=== PATIENT | female | born 1995 | race Caucasian/White ===

== ENCOUNTER 2017-04-18 08:43 | Inpatient (IN) | payer SELFPAY ==
[~2017-04-18] VITALS: Ht 167.6 cm; Wt 79.4 kg
[2017-04-18] VITALS (9 sets, daily range): BP systolic 105–123; BP diastolic 62–78; PULSE 53–110; RESP 16–20; TEMP 98.2–100.2; O2SAT 97–100
[~2017-04-18 08:43] MED LIST: METH40TA9 PO
[2017-04-18] MEDS ORDERED: SODIUM CHLOR 0.9% 1000 ML INJ 1,000 ML IV ONE ×2 (09:02→17:45)
[2017-04-18] MEDS ORDERED: SODIUM CHLORIDE 0.9% FLUSH 10 ML FLUSH IVF PRN (09:15)
[2017-04-18 10:44] LABS: BASOPHIL % 0.6 % (0.0-2.0); EOSINOPHIL # 0.1 TH/MM3 (0-0.4); EOSINOPHIL % 2.2 % (0.0-4.0); HEMATOCRIT 38.3 % (35.0-46.0); HEMO FLAGS DIFF FINAL; LYMPH % 22.9 % (9.0-44.0); LYMPHOCYTE # 1.3 TH/MM3 (1.0-4.8); MEAN CELL VOLUME 87.2 FL (80.0-100.0); MEAN CORPUSCULAR HEMOGLOBIN 28.4 PG (27.0-34.0); MEAN CORPUSCULAR HGB CONC 32.6 % (32.0-36.0); MONO % 4.1 % (0.0-8.0); NEUT % 70.2 % (16.0-70.0); PLATELET COUNT 174 TH/MM3 (150-450); RED BLOOD COUNT 4.39 MIL/MM3 (4.00-5.30); RED CELL DISTRIBUTION WIDTH 12.9 % (11.6-17.2); WHITE BLOOD COUNT 5.7 TH/MM3 (4.0-11.0)
[2017-04-18 10:57] LABS: ALT (GPT) 47 U/L (10-53); ANION GAP 6 MEQ/L (5-15); AST (GOT) 26 U/L (15-37); BICARBONATE 23.7 MEQ/L (21.0-32.0); BLOOD UREA NITROGEN 9 MG/DL (7-18); CHLORIDE 113 MEQ/L (98-107); GLOMERULAR FILTRATION RATE 116 ML/MIN (>89); POTASSIUM 3.8 MEQ/L (3.5-5.1); SODIUM (NA) 143 MEQ/L (136-145)
[2017-04-18 11:01] LABS: ALKALINE PHOSPHATASE 66 U/L (45-117); BETA HCG QUANT LESS THAN 1 MIU/ML (0-5); TOTAL BILIRUBIN ADULT 0.3 MG/DL (0.2-1.0)
--- NOTE | 2017-04-18 12:06 | PD ---
HPI Chief Complaint: Seizure Time Seen by Provider: 09:02 Travel History International Travel<30 days: No Contact w/Intl Traveler<30days: No Traveled to known affect area: No History of Present Illness HPI Is a 21 year-old woman who presents to the emergency department from [facility] with the seizure. She presented there yesterday voluntarily for treatment for IV drug abuse. She uses IV heroin. Last used 2 nights ago. She had a seizure with generalized convulsions lasting about 15 seconds. She was sent to the emergent for evaluation. She complains of a painful bump on the back of her head. No other complaints. History Past Medical History Narrative Medical IV drug use Hepatitis C : 0 Past Surgical History Surgical History: No Previous Surgery Social History Alcohol Use: No Tobacco Use: Yes (1 CIGARETTE) Allergies-Medications (Allergen,Severity, Reaction): Coded Allergies: No Known Allergies (Verified , 04/18/17) Reported Meds & Prescriptions Reported Meds & Active Scripts Active Reported Methadone Hcl (Methadone HCl) 40 Mg Tab 140 Mg PO DAILY Review of Systems Except as stated in HPI: all other systems reviewed are Neg Physical Exam Narrative GENERAL: Well-appearing 21 year-old woman, no acute distress. SKIN: Focused skin assessment warm/dry. HEAD: Atraumatic. Normocephalic. CARDIOVASCULAR: Regular rate and rhythm. No murmur appreciated. RESPIRATORY: No accessory muscle use. Clear to auscultation. Breath sounds equal bilaterally. GASTROINTESTINAL: Abdomen soft, non-tender, nondistended. Hepatic and splenic margins not palpable. MUSCULOSKELETAL: No obvious deformities. No edema. NEUROLOGICAL: Awake and alert. No obvious cranial nerve deficits. Motor grossly within normal limits. Normal speech. PSYCHIATRIC: Appropriate mood and affect; insight and judgment normal. Data Data Last Documented VS Vital Signs Date Time Temp Pulse Resp B/P Pulse Ox O2 Delivery O2 Flow Rate FiO2 04/18/17 10:28 53 20 118/78 100 Room Air 04/18/17 08:49 98.5 Orders Complete Blood Count With Diff (04/18/17 09:02) Electrocardiogram (04/18/17 ) Ct Brain W/O Iv Contrast(Rout) (04/18/17 ) Blood Glucose (04/18/17 09:02) Ecg Monitoring (04/18/17 09:02) Iv Access Insert/Monitor (04/18/17 09:02) Oximetry (04/18/17 09:02) Comprehensive Metabolic Panel (04/18/17 09:02) Sodium Chlor 0.9% 1000 Ml Inj (Ns 1000 M (04/18/17 09:02) Sodium Chloride 0.9% Flush (Ns Flush) (04/18/17 09:15) Beta Hcg (Quant/Titer) (04/18/17 09:02) Labs Laboratory Tests Test 04/18/17 10:20 White Blood Count 5.7 TH/MM3 Red Blood Count 4.39 MIL/MM3 Hemoglobin 12.5 GM/DL Hematocrit 38.3 % Mean Corpuscular Volume 87.2 FL Mean Corpuscular Hemoglobin 28.4 PG Mean Corpuscular Hemoglobin 32.6 % Concent Red Cell Distribution Width 12.9 % Platelet Count 174 TH/MM3 Mean Platelet Volume 8.9 FL Neutrophils (%) (Auto) 70.2 % Lymphocytes (%) (Auto) 22.9 % Monocytes (%) (Auto) 4.1 % Eosinophils (%) (Auto) 2.2 % Basophils (%) (Auto) 0.6 % Neutrophils # (Auto) 4.0 TH/MM3 Lymphocytes # (Auto) 1.3 TH/MM3 Monocytes # (Auto) 0.2 TH/MM3 Eosinophils # (Auto) 0.1 TH/MM3 Basophils # (Auto) 0.0 TH/MM3 CBC Comment DIFF FINAL Differential Comment Sodium Level 143 MEQ/L Potassium Level 3.8 MEQ/L Chloride Level 113 MEQ/L Carbon Dioxide Level 23.7 MEQ/L Anion Gap 6 MEQ/L Blood Urea Nitrogen 9 MG/DL Creatinine 0.64 MG/DL Estimat Glomerular Filtration 116 ML/MIN Rate Random Glucose 98 MG/DL Calcium Level 8.8 MG/DL Total Bilirubin 0.3 MG/DL Aspartate Amino Transf 26 U/L (AST/SGOT) Alanine Aminotransferase 47 U/L (ALT/SGPT) Alkaline Phosphatase 66 U/L Total Protein 7.2 GM/DL Albumin 3.4 GM/DL Human Chorionic Gonadotropin, LESS THAN 1 Quant MIU/ML [facility] Medical Decision Making Medical Screen Exam Complete: Yes Emergency Medical Condition: Yes Interpretation(s) My review of EKG: Normal sinus rhythm at a rate of 60, normal axis, normal intervals, no ischemia. LABS: CBC is unremarkable. CMP unremarkable. HCG negative. Head CT negative. Differential Diagnosis Seizure, withdrawal, drug use, adverse effect to medication, other Narrative Course Medical decision making 21 year-old woman, no history of seizures, presents with 15 segs on generalized convulsions. She's been treated at [facility] for IV drug abuse. Last used heroin when 2 nights ago. She is receiving Klonopin clonidine. She looks well. She is small contusion on the back of her head. No other recent trauma. We'll check labs EKG CT and likely outpatient follow-up. Diagnosis Primary Impression: Seizure Additional Instructions: Continue treatment for substance abuse with [facility]. Do not drive or operate heavy machinery until cleared by your physician. You should avoid being in any situation where if you had a seizure it could be dangerous such as swimming, looking on a ladder, or other such activities. Return to the emergency department for any seizures lasting more than 5 minutes , [id number] seizures, or seizures with prolonged confusion afterwards. Med/Other Pt SpecificInfo: No Change to Meds Disposition: 01 DISCHARGE HOME Condition: Stable Swapnil Warner MD Apr 18, 2017 12:05
--- NOTE | 2017-04-18 13:27 | RADRPT ---
EXAM DATE/TIME: 04/18/2017 11:24 [place] COMPARISON: No previous studies available for comparison. INDICATIONS : Seizure RADIATION DOSE: 32.68 CTDIvol (mGy) MEDICAL HISTORY : Hepatitis C. SURGICAL HISTORY : None. ENCOUNTER: Initial ACUITY: 1 day PAIN SCALE: Non-responsive LOCATION: cranial TECHNIQUE: Multiple contiguous axial images were obtained of the head. Using automated exposure control and adj ustment of the mA and/or kV according to patient size, radiation dose was kept as low as reasonably a chievable to obtain optimal diagnostic quality images. DICOM format image data is available electro nically for review and comparison. FINDINGS: CEREBRUM: The ventricles are normal for age. No evidence of midline shift, mass lesion, hemorrhage or acute in farction. No extra-axial fluid collections are seen. POSTERIOR FOSSA: The cerebellum and brainstem are intact. The 4th ventricle is midline. The cerebellopontine angle i s unremarkable. EXTRACRANIAL: The visualized portion of the orbits is intact. SKULL: The calvaria is intact. No evidence of skull fracture. CONCLUSION: No acute disease. Rachid Gonzalez MD on April 18, 2017 at 13:25 Board Certified Radiologist. This report was verified electronically.
--- NOTE | 2017-04-18 13:36 | EKG ---
Date Performed: 04/18/2017 Time Performed: 10:39:42 PTAGE: 21 years EKG: Sinus rhythm WITH SINUS ARRHYTHMIA NORMAL ECG WARNING: DATA QUALITY MAY AFFECT INTERPRETATION Lead V4 is not avai lable NO PREVIOUS TRACING DOCTOR: Demetrius Gibson Interpretating Date/Time 04/18/2017 13:35:13
[2017-04-18] MEDS ORDERED: KETOROLAC TROMETHAMINE 30 MG/ML (IVP) VIAL IVP ONE (13:45)
[2017-04-18] MEDS ORDERED: ACETAMINOPHEN 500 MG CPLT PO ONE (14:00)
[2017-04-18] MEDS ORDERED: LORazepam 2 MG/ML VIAL IV PRN (14:15)
[2017-04-18] MEDS ORDERED: ONDANSETRON HCL 4 MG/2 ML VIAL IV PRN (14:15)
[2017-04-18] MEDS ORDERED: LORazepam 2 MG/ML VIAL IV PUSH PRN ×3 (14:15)
[2017-04-18] MEDS ORDERED: MAGNESIUM HYDROXIDE SUSP 30 ML CUP PO PRN (14:15)
[2017-04-18] MEDS ORDERED: ACETAMINOPHEN 325 MG TAB PO PRN (14:15)
[2017-04-18] MEDS ORDERED: SODIUM CHLORIDE 0.9% FLUSH 10 ML FLUSH IV FLUSH PRN ×2 (14:15)
[2017-04-18] MEDS ORDERED: BISACODYL 10 MG SUPP RECTAL PRN (14:15)
[2017-04-18] MEDS ORDERED: LORazepam 2 MG TAB PO PRN (14:15)
[2017-04-18] MEDS ORDERED: HALOPERIDOL LACTATE 5 MG/ML AMP IM PRN (14:15)
[2017-04-18] MEDS ORDERED: FLUMAZENIL 0.5 MG/5 ML VIAL IV PUSH PRN (14:15)
[2017-04-18] MEDS ORDERED: PROCHLORPERAZINE 25 MG SUPP RECTAL PRN (14:15)
[2017-04-18] MEDS ORDERED: LORazepam 1 MG TAB PO PRN (14:15)
[2017-04-18] MEDS ORDERED: ONDANSETRON HCL 4 MG/2 ML VIAL IVP PRN (14:15)
[2017-04-18] MEDS ORDERED: NALOXONE HCL 0.4 MG/ML AMP IV PRN (14:15)
[2017-04-18] MEDS ORDERED: SENNOSIDES 8.6 MG TAB PO PRN (14:15)
[2017-04-18] MEDS ORDERED: LACTULOSE SYRUP 20 GM/30 ML CUP PO PRN (14:15)
[2017-04-18] MEDS ORDERED: cloNIDine HCL 0.1 MG TAB PO PRN (14:30)
[2017-04-18] MEDS ORDERED: FOLIC ACID 1 MG TAB PO ONE (14:30)
[2017-04-18] MEDS ORDERED: THIAMINE HCL 100 MG TAB PO ONE (14:30)
[2017-04-18] MEDS ORDERED: MULTIVITAMIN TAB PO ONE (14:30)
--- NOTE | 2017-04-18 14:58 | HHI.HP ---
[facility] Service [facility] Primary Care Physician No Primary Care Physician Admission Diagnosis seizures Diagnoses: (1) Seizure Diagnosis: Principal (2) Drug abuse Diagnosis: Principal (3) Tobacco abuse Diagnosis: Secondary (4) Heroin abuse Diagnosis: Principal Chief Complaint: Seizure activity Travel History International Travel<30 Days: No Contact w/Intl Traveler <30 Da: No Traveled to Known Affected Are: No History of Present Illness Ms. Peña is a 21-year-old female patient with a known medical history of IV heroin abuse who presented to the ED with witnessed seizure activity. Last IV heroin use 2 days ago. Patient had presented voluntarily to [facility] yesterday when, per records, this morning she had her first witnessed seizure and was sent to ED emergently. This episode involved convulsions lasting roughly 15 seconds. Patient unable to recall anything related to the event. Also while patient was ambulating in the ED today she had a syncopal episode, during which she blacked out for less than 10 seconds and woke back up shortly after, both alert and oriented. Denies any previous seizure activity. Denies any alcohol use. Denies any recent illness. Denies any recent fever, chills, cough, headache, dizziness, shortness of breath, abdominal pain, nausea, vomiting, diarrhea or dysuria. Review of Systems Constitutional: COMPLAINS OF: Fatigue, Chills, DENIES: Diaphoretic episodes, Fever, Weight gain, Weight loss Endocrine: DENIES: Abnorml menstrual pattern Eyes: DENIES: Blurred vision, Diplopia, Eye inflammation Ears, nose, mouth, throat: DENIES: Tinnitus, Hearing loss, Vertigo, Nasal discharge Respiratory: DENIES: Apneas, Cough, Snoring, Wheezing Cardiovascular: COMPLAINS OF: Syncope, DENIES: Chest pain, Palpitations, Dyspnea on Exertion, PND, Lower Extremity Edema Gastrointestinal: DENIES: Abdominal pain, Black stools, Bloody stools Genitourinary: DENIES: Abnormal vaginal bleeding, Dysmenorrhea, Dyspareunia, Sexual dysfunction Musculoskeletal: DENIES: Joint pain, Muscle aches, Stiffness Integumentary: DENIES: Abnormal pigmentation, Pruritus Hematologic/lymphatic: DENIES: Bruising, Lymphadenopathy Immunologic/allergic: DENIES: Eczema, Urticaria Neurologic: COMPLAINS OF: Headache, Seizures, DENIES: Abnormal gait, Localized weakness, Paresthesias Psychiatric: COMPLAINS OF: Anxiety, Depression, Agitation, DENIES: Confusion, Mood changes, Hallucinations, Suicidal Ideation, Homicidal Ideation, Delusions Except as stated in HPI: all other systems reviewed are Neg Past Family Social History Past Medical History History of Hepatitis C, has not received treatment. IVDU Tobacco abuse Past Surgical History Denies any surgical history. Reported Medications Denies any current medications. Allergies: Coded Allergies: No Known Allergies (Verified , 04/18/17) Active Ordered Medications Current Medications Medications (Trade) Dose Ordered Sig/David Route Start Time Stop Time Status Last Admin Sodium Chloride 2 ml 2 ml UNSCH PRN IVF 04/18/17 09:15 (NS 1000 ml Inj) 1,000 ml @ 75 mls/hr [id number] IV 04/18/17 14:15 UNV (NS Flush) 2 ml UNSCH PRN IV FLUSH 04/18/17 14:15 UNV (NS Flush) 2 ml BID IV FLUSH 04/18/17 21:00 UNV (Ativan Inj) 2 mg UNSCH PRN IV 04/18/17 14:15 UNV (Zofran Inj) 4 mg Q6H PRN IV 04/18/17 14:15 UNV (NS Flush) 2 ml UNSCH PRN IV FLUSH 04/18/17 14:15 UNV (NS Flush) 2 ml BID IV FLUSH 04/18/17 21:00 UNV (Tylenol) 650 mg Q4H PRN PO 04/18/17 14:15 UNV (Zofran Inj) 4 mg Q6H PRN IVP 04/18/17 14:15 UNV (Compazine Supp) 25 mg Q12H PRN [place] 04/18/17 14:15 UNV (Narcan Inj) 0.4 mg UNSCH PRN IV 04/18/17 14:15 UNV (Darlene-Colace) 1 tab BID PO 04/18/17 21:00 UNV (Milk Of Magnesia Liq) 30 ml Q12H PRN PO 04/18/17 14:15 UNV (Senokot) 17.2 mg Q12H PRN PO 04/18/17 14:15 UNV (Dulcolax Supp) 10 mg DAILY PRN RECTAL 04/18/17 14:15 UNV (Lactulose Liq) 30 ml DAILY PRN PO 04/18/17 14:15 UNV (Romazicon Inj) 0.2 mg Q1M PRN IV PUSH 04/18/17 14:15 UNV (Ativan) 1 mg Q4H PRN PO 04/18/17 14:15 UNV (Ativan Inj) 1 mg Q4H PRN IV PUSH 04/18/17 14:15 UNV (Ativan) 2 mg Q2H PRN PO 04/18/17 14:15 UNV (Ativan Inj) 2 mg Q2H PRN IV PUSH 04/18/17 14:15 UNV (Ativan Inj) 2 mg Q1H PRN IV PUSH 04/18/17 14:15 UNV (Ativan Inj) 2 mg Q15M PRN IV PUSH 04/18/17 14:15 UNV (Haldol Inj) 2 mg Q15M PRN IM 04/18/17 14:15 UNV Non-Formulary Medication 140 mg DAILY PO 04/19/17 09:00 UNV (Theragran) 1 tab ONCE ONCE PO 04/18/17 14:30 04/18/17 14:31 UNV (Theragran) 1 tab DAILY PO 04/19/17 09:00 UNV (Vitamin B1) 100 mg ONCE ONCE PO 04/18/17 14:30 04/18/17 14:31 UNV (Vitamin B1) 100 mg DAILY PO 04/19/17 09:00 UNV (Folate) 1 mg ONCE ONCE PO 04/18/17 14:30 04/18/17 14:31 UNV (Folate) 1 mg DAILY PO 04/19/17 09:00 UNV (Catapres) 0.1 mg Q4H PRN PO 04/18/17 14:30 UNV Family History Denies any significant family medical history. Social History Patient lives with her boyfriend, states she is arranging to live at a support house for her IV drug abuse. Denies any alcohol use. Does admit to IV heroin abuse, last used 2 days ago. Does admit to smoking cigarettes 1/2 ppd. Physical Exam Vital Signs Vital Signs Date Time Temp Pulse Resp B/P Pulse Ox O2 Delivery O2 Flow Rate FiO2 04/18/17 13:45 98.2 76 16 118/62 100 Room Air 04/18/17 10:28 53 20 118/78 100 Room Air 04/18/17 10:27 20 100 Room Air 04/18/17 08:57 99 Room Air 04/18/17 08:49 98.5 59 20 114/76 99 Physical Exam GENERAL: Well-nourished, well-developed female patient, in no apparent distress. SKIN: No rashes, ecchymoses or lesions. Warm and dry. HEENT: Atraumatic. Normocephalic. No temporal or scalp tenderness. Pupils equal round and reactive. Extraocular motions intact. No scleral icterus. No injection or drainage. Nose without bleeding, purulent drainage or septal hematoma. Throat without erythema, tonsillar hypertrophy or exudate. Uvula midline. Airway patent. Tongue is midline NECK: Trachea midline. No JVD or lymphadenopathy. Supple, nontender, no meningeal signs. CARDIOVASCULAR: Regular rate and rhythm. No murmur appreciated. S1-S2 no S3 or S4 no heave or thrill or rub or gallop RESPIRATORY: Clear to auscultation. Breath sounds equal bilaterally. No wheezes , rales, or rhonchi. GASTROINTESTINAL: Abdomen soft, non-tender, nondistended. No guarding. MUSCULOSKELETAL: Extremities without clubbing, cyanosis, or edema. No joint tenderness, effusion, or edema noted. Some track villatoro noted NEUROLOGICAL: Awake and alert. Cranial nerves II through XII intact. Motor and sensory grossly within normal limits. Five out of 5 muscle strength in all muscle groups. Normal speech. Insight and judgment are poor mood and behavior somewhat appropriate Laboratory Laboratory Tests Test 04/18/17 10:20 White Blood Count 5.7 Red Blood Count 4.39 Hemoglobin 12.5 Hematocrit 38.3 Mean Corpuscular Volume 87.2 Mean Corpuscular Hemoglobin 28.4 Mean Corpuscular Hemoglobin 32.6 Concent Red Cell Distribution Width 12.9 Platelet Count 174 Mean Platelet Volume 8.9 Neutrophils (%) (Auto) 70.2 Lymphocytes (%) (Auto) 22.9 Monocytes (%) (Auto) 4.1 Eosinophils (%) (Auto) 2.2 Basophils (%) (Auto) 0.6 Neutrophils # (Auto) 4.0 Lymphocytes # (Auto) 1.3 Monocytes # (Auto) 0.2 Eosinophils # (Auto) 0.1 Basophils # (Auto) 0.0 CBC Comment DIFF FINAL Differential Comment Sodium Level 143 Potassium Level 3.8 Chloride Level 113 Carbon Dioxide Level 23.7 Anion Gap 6 Blood Urea Nitrogen 9 Creatinine 0.64 Estimat Glomerular Filtration 116 Rate Random Glucose 98 Calcium Level 8.8 Total Bilirubin 0.3 Aspartate Amino Transf 26 (AST/SGOT) Alanine Aminotransferase 47 (ALT/SGPT) Alkaline Phosphatase 66 Total Protein 7.2 Albumin 3.4 Human Chorionic Gonadotropin, LESS THAN 1 Quant Result Diagram: 04/18/17 1020 04/18/17 1020 Imaging Last Impressions Head CT 04/18/17 0000 Signed Impressions: Service Date/Time: Tuesday, April 18, 2017 11:24 - CONCLUSION: No acute disease. Rachid Gonzalez MD Assessment and Plan Problem List: (1) Drug abuse ICD Code: F19.10 Status: Acute (2) Seizure ICD Code: R56.9 Status: Acute (3) Tobacco abuse ICD Code: Z72.0 Status: Acute (4) Heroin abuse ICD Code: F11.10 Status: Acute Assessment and Plan Ms. Peña is a 21-year-old female patient with a known medical history of IVDU. Last IV heroin use 2 days ago. Denies any previous seizure activity. Denies any alcohol use. Has sought treatment for IVDU at [facility]. Had first witnessed seizure while there this morning and sent to ED emergently. Also while patient was ambulating in the ED today she had a syncopal episode when SHe blacked out for less than 10 seconds and woke back up shortly after alert and oriented. Denies any prior seizure activity. Denies any recent illness. Denies any recent fever, chills, cough, headache, dizziness, shortness of breath, abdominal pain, nausea, vomiting, diarrhea or dysuria. New onset seizure activity suspect secondary to drug withdrawal Syncopal episode suspect secondary to above - CT brain showing no acute disease. - Consult neurology for new onset seizures, appreciate input. - EEG ordered and pending. Follow. - Seizure precautions. Haldol and Ativan PRN. - Continue neuro checks q4hr. - Monitor hydration, continue IVF. IV drug abuse - Last used IV heroin 2 days ago. - . Monitor for withdrawals. - Start on multivitamin, thiamine and folic acid. - Encourage cessation. [facility] protocol for withdrawal Tobacco abuse: Encouraged cessation. DVT prophylaxis:SCDs/TEDs.The exam, history, and the medical decision-making described in the above note were completed with the assistance of the mid-level provider. I reviewed and agree with the findings presented. I attest that I had a [id number] encounter with the patient on the same day, and personally performed and documented my assessment and findings in the medical record. Physician Certification 2 Midnight Certification Type: Admission for Inpatient Services Order for Inpatient Services The services are ordered in accordance with Medicare regulations or non- Medicare payer requirements, as applicable. In the case of services not specified as inpatient-only, they are appropriately provided as inpatient services in accordance with the 2-midnight benchmark. Estimated LOS (days): 3 3 days is the estimated time the patient will need to remain in the hospital, assuming treatment plan goals are met and no additional complications. Post-Hospital Plan: Home Gia Barrera Apr 18, 2017 14:58 Jaspal Zambrano DO Apr 18, 2017 15:19
[2017-04-18] MEDS ORDERED: NICOTINE 14 MG/24 HR PATCH T-DERMAL ONE (15:45)
[2017-04-18] MEDS: SODIUM CHLOR 0.9% 1000 ML INJ 1,000 ML IV SCH (15:58)
[2017-04-18] MEDS: LORazepam 2 MG/ML VIAL IV PUSH PRN ×2 (16:09→22:50)
--- NOTE | 2017-04-18 17:09 | PD.CONS ---
History of Present Illness Service Neurology Consult Requested By med Reason for Consult sz Primary Care Physician No Primary Care Physician History of Present Illness 21-year-old female patient with a known medical history of IV heroin abuse who presented to the ED with witnessed seizure activity. Last IV heroin use 2 days ago. Patient poor historian and very interactive. per records: Patient had presented voluntarily to [facility] yesterday when, per records, this morning she had her first witnessed seizure and was sent to ED emergently. This episode involved convulsions lasting roughly 15 seconds. Patient unable to recall anything related to the event. Also while patient was ambulating in the ED today she had a syncopal episode, during which she blacked out for less than 10 seconds and woke back up shortly after, both alert and oriented. ct brain negative. glucose 98. UDS pending Denies any previous seizure activity. Denies any alcohol use. Denies any recent illness. Denies any recent fever, chills, cough, headache, dizziness. Review of Systems as above and admit hp Past Family Social History Past Medical History History of Hepatitis C, has not received treatment. IVDU Tobacco abuse Past Surgical History Denies any surgical history. Reported Medications Denies any current medications. Allergies: Coded Allergies: No Known Allergies (Verified , 04/18/17) Family History Denies any significant family medical history Social History admit to IV heroin abuse, last used 2 days ago. Does admit to smoking cigarettes 1/2 ppd Review of Systems All other ROS: ROS reviewed as documented in chart Past Family Social History Allergies: Coded Allergies: No Known Allergies (Verified , 04/18/17) Active Ordered Medications Current Medications Medications (Trade) Dose Ordered Sig/David Route Start Time Stop Time Status Last Admin Sodium Chloride 2 ml 2 ml UNSCH PRN IVF 04/18/17 09:15 (NS 1000 ml Inj) 1,000 ml @ 75 mls/hr [id number] IV 04/18/17 15:00 04/18/17 15:58 (NS Flush) 2 ml UNSCH PRN IV FLUSH 04/18/17 14:15 (NS Flush) 2 ml BID IV FLUSH 04/18/17 21:00 (Ativan Inj) 2 mg UNSCH PRN IV 04/18/17 14:15 (Zofran Inj) 4 mg Q6H PRN IV 04/18/17 14:15 (Tylenol) 650 mg Q4H PRN PO 04/18/17 14:15 (Compazine Supp) 25 mg Q12H PRN RECTAL 04/18/17 14:15 (Narcan Inj) 0.4 mg UNSCH PRN IV 04/18/17 14:15 (Darlene-Colace) 1 tab BID PO 04/18/17 21:00 (Milk Of Magnesia Liq) 30 ml Q12H PRN PO 04/18/17 14:15 (Senokot) 17.2 mg Q12H PRN PO 04/18/17 14:15 (Dulcolax Supp) 10 mg DAILY PRN RECTAL 04/18/17 14:15 (Lactulose Liq) 30 ml DAILY PRN PO 04/18/17 14:15 (Romazicon Inj) 0.2 mg Q1M PRN IV PUSH 04/18/17 14:15 (Ativan) 1 mg Q4H PRN PO 04/18/17 14:15 (Ativan Inj) 1 mg Q4H PRN IV PUSH 04/18/17 14:15 04/18/17 16:09 (Ativan) 2 mg Q2H PRN PO 04/18/17 14:15 (Ativan Inj) 2 mg Q2H PRN IV PUSH 04/18/17 14:15 (Ativan Inj) 2 mg Q1H PRN IV PUSH 04/18/17 14:15 (Ativan Inj) 2 mg Q15M PRN IV PUSH 04/18/17 14:15 (Haldol Inj) 2 mg Q15M PRN IM 04/18/17 14:15 (Theragran) 1 tab DAILY PO 04/19/17 09:00 (Vitamin B1) 100 mg DAILY PO 04/19/17 09:00 (Folate) 1 mg DAILY PO 04/19/17 09:00 (Catapres) 0.1 mg Q4H PRN PO 04/18/17 14:30 (Habitrol 14 Mg Patch.24 Hr) 1 patch DAILY T-DERMAL 04/19/17 09:00 Miscellaneous Information 1 DAILY T-DERMAL 04/19/17 09:00 Exam I&O / VS Vital Signs Date Time Temp Pulse Resp B/P Pulse Ox O2 Delivery O2 Flow Rate FiO2 04/18/17 16:07 99.5 67 16 119/62 100 Room Air 8/15/17 15:08 20 04/18/17 13:45 98.2 76 16 118/62 100 Room Air 04/18/17 10:28 53 20 118/78 100 Room Air 04/18/17 10:27 20 100 Room Air 04/18/17 08:57 99 Room Air 04/18/17 08:49 98.5 59 20 114/76 99 Exam Comments lying in bed, in nad, ox 3, very poor eye contact, not interested in participating in exam, eomi, face sym, wisdom to gravity, neck appears supple Review/Management Diagnosis/Plan: (1) Seizure Plan: withdrawal-related? await UDS ? what was given at [facility] eeg f/u rest of labs iv ativan prn no sz meds at present unless eeg + stop illicit drugs will sign off. call if ? no driving/swimming/operating any dangerous machinery (2) Heroin abuse Marshall Vogt MD Apr 18, 2017 17:09
[2017-04-18 20:59] LABS: AMPHETAMINE, URINE NEG (NEG); BARBITURATES, URINE NEG (NEG); COCAINE, URINE NEG (NEG)
[2017-04-18] MEDS: DOCUSATE SODIUM 50 MG/SENNA 8.6 MG TAB PO SCH (21:00)
[2017-04-18] MEDS ORDERED: SODIUM CHLORIDE 0.9% FLUSH 10 ML FLUSH IV FLUSH SCH (21:00)
[2017-04-18] MEDS: SODIUM CHLORIDE 0.9% FLUSH 10 ML FLUSH IV FLUSH SCH (21:00)
[2017-04-18 22:52] LABS: MAGNESIUM 1.9 MG/DL (1.5-2.5)
[2017-04-19] VITALS (7 sets, daily range): BP systolic 116–126; BP diastolic 63–76; PULSE 65–96; RESP 16–20; TEMP 98.6–100.1; O2SAT 97–98
[2017-04-19] MEDS ORDERED: IBUPROFEN 400 MG TAB PO ONE (03:00)
[2017-04-19] MEDS: SODIUM CHLOR 0.9% 1000 ML INJ 1,000 ML IV SCH ×2 (04:20→10:46)
[2017-04-19] MEDS ORDERED: FOLIC ACID 1 MG TAB PO SCH (09:00)
[2017-04-19] MEDS ORDERED: REMOVE OLD PATCH T-DERMAL SCH (09:00)
[2017-04-19] MEDS ORDERED: METHADONE HCL 10 MG TAB PO SCH (09:00)
[2017-04-19] MEDS ORDERED: NICOTINE 14 MG/24 HR PATCH T-DERMAL SCH (09:00)
[2017-04-19] MEDS ORDERED: THIAMINE HCL 100 MG TAB PO SCH (09:00)
[2017-04-19] MEDS ORDERED: MULTIVITAMIN TAB PO SCH (09:00)
[2017-04-19] MEDS: DOCUSATE SODIUM 50 MG/SENNA 8.6 MG TAB PO SCH (09:06)
[2017-04-19] MEDS: SODIUM CHLORIDE 0.9% FLUSH 10 ML FLUSH IV FLUSH SCH (09:06)
[2017-04-19 09:48] LABS: AUTOMATED NEUTROPHIL # 7.5 TH/MM3 (1.8-7.7); BASOPHIL % 0.2 % (0.0-2.0); EOSINOPHIL % 0.1 % (0.0-4.0); HEMATOCRIT 35.6 % (35.0-46.0); HEMO FLAGS DIFF FINAL; LYMPH % 18.1 % (9.0-44.0); LYMPHOCYTE # 1.8 TH/MM3 (1.0-4.8); MEAN CELL VOLUME 86.2 FL (80.0-100.0); MEAN CORPUSCULAR HEMOGLOBIN 28.9 PG (27.0-34.0); MEAN CORPUSCULAR HGB CONC 33.6 % (32.0-36.0); MONO % 5.5 % (0.0-8.0); NEUT % 76.1 % (16.0-70.0); PLATELET COUNT 169 TH/MM3 (150-450); RED BLOOD COUNT 4.13 MIL/MM3 (4.00-5.30); RED CELL DISTRIBUTION WIDTH 12.8 % (11.6-17.2); WHITE BLOOD COUNT 9.9 TH/MM3 (4.0-11.0)
[2017-04-19 10:15] LABS: ALT (GPT) 37 U/L (10-53); ANION GAP 10 MEQ/L (5-15); AST (GOT) 19 U/L (15-37); BICARBONATE 22.3 MEQ/L (21.0-32.0); BLOOD UREA NITROGEN 10 MG/DL (7-18); CHLORIDE 114 MEQ/L (98-107); GLOMERULAR FILTRATION RATE 120 ML/MIN (>89); MAGNESIUM 1.8 MG/DL (1.5-2.5); POTASSIUM 3.3 MEQ/L (3.5-5.1); SODIUM (NA) 146 MEQ/L (136-145)
[2017-04-19 10:23] LABS: ALKALINE PHOSPHATASE 58 U/L (45-117); FREE T4 1.15 NG/DL (0.76-1.46); TOTAL BILIRUBIN ADULT 0.5 MG/DL (0.2-1.0)
[2017-04-19] MEDS ORDERED: POTASSIUM CHLORIDE 10 MEQ CONTROLLED RELEASE TAB PO ONE (11:15)
--- NOTE | 2017-04-19 11:33 | HHI.PR ---
Subjective Remarks Follow-up seizure. Patient reports pain in the back of her head and in her neck. She states that this occurred when she fell and had the seizure. She reports being very anxious. No chest pain, nausea, vomiting. Objective Vitals Vital Signs Date Time Temp Pulse Resp B/P Pulse Ox O2 Delivery O2 Flow Rate FiO2 04/19/17 08:30 98.6 69 16 119/76 98 04/19/17 07:15 78 04/19/17 04:00 100.0 75 20 126/63 98 04/19/17 00:00 100.1 96 20 126/75 97 04/18/17 21:30 110 105/63 97 Room Air 04/18/17 20:35 102 20 123/75 99 Room Air 04/18/17 20:10 Room Air 04/18/17 20:10 Room Air 04/18/17 18:49 93 18 119/73 100 Room Air 04/18/17 17:39 100.2 68 20 116/66 100 Room Air 04/18/17 16:07 99.5 67 16 119/62 100 Room Air 04/18/17 15:08 20 04/18/17 13:45 98.2 76 16 118/62 100 Room Air I/O 04/18/17 04/18/17 04/18/17 04/19/17 04/19/17 04/19/17 07:00 15:00 23:00 07:00 15:00 23:00 Output Total 0 ml Balance 0 ml Output Urine Total 0 ml # Voids 1 1 Result Diagram: 04/19/17 0740 04/19/17 0740 Imaging Last Impressions Head CT 04/18/17 0000 Signed Impressions: Service Date/Time: Tuesday, April 18, 2017 11:24 - CONCLUSION: No acute disease. Rachid Gonzalez MD Objective Remarks Patient examined in the presence of the nurse. General: No acute distress. Heart: Regular rate and rhythm. No murmur. Lungs: Clear to auscultation bilaterally. No wheezes, rales, or rhonchi. Breathing is nonlabored. Abdomen: Soft, nontender, nondistended. Extremities: No lower extremity edema. Psych: Alert and oriented. Procedures None Urinary Catheter: No Vascular Central Line Catheter: No A/P Problem List: (1) Seizure ICD Code: R56.9 Status: Acute (2) Drug abuse ICD Code: F19.10 Status: Chronic (3) Tobacco abuse ICD Code: Z72.0 Status: Chronic (4) Heroin abuse ICD Code: F11.10 Status: Chronic (5) Hypokalemia ICD Code: E87.6 Status: Acute Assessment and Plan 1. Seizure: Likely related to opiate withdrawal. Appreciate neurology recommendations. EEG is pending. No antiepileptic medications at this time, unless EEG is positive. 2. Syncopal episode: Likely secondary to withdrawal, recent seizure. No lightheadedness or dizziness reported today. 3. Hypokalemia: Supplement potassium. 4. Substance abuse: Patient was counseled. She was at [facility] for treatment when the seizure episode occurred. Continue multivitamin, thiamine , folic acid. [facility] protocol. 5. Head and neck pain: CT of the head is negative. Will avoid opiates if at all possible. Add Toradol. 6. DVT prophylaxis: KAREN Wallis. Eddie Mcdermott MD Apr 19, 2017 11:33
[2017-04-19] MEDS ORDERED: KETOROLAC TROMETHAMINE 60 MG/2 ML (IM) VIAL IM PRN (11:45)
[2017-04-19] MEDS ORDERED: NS + KCL 20 MEQ INJ 1,000 ML IV SCH (11:45)
[2017-04-19 16:34] LABS: HEMOGLOBIN A1a 1.1 %; HEMOGLOBIN A1b 0.8 %; HEMOGLOBIN Ao 85.9 %; HEMOGLOBIN LA1C 1.9 %; HEMOGLOBIN P3 3.4 %
--- NOTE | 2017-04-19 18:07 | MG ---
cc: ANNAMARIE BASSETT Lab No: Date: 04/19/2017 Age: Sex: F Race: ELECTROENCEPHALOGRAM NUMBER [id number] INTRODUCTION Maurice. Grand mal seizures. A 21-year-old woman. Anxiety. Cocaine. Dilaudid. Nicotine, thiamine. DESCRIPTION Diffuse beta rhythms are seen which could be seen with benzodiazepine use. Other times diffuse 6 Hz slowing is noted. She is asleep at the beginning of the recording and the patient is in stage II sleep in the beginning of the recording also. A small sharply contoured wave is seen at epoch 74 over the left mid temporal head region but slightly also seen on the right although this is during sleep and is not well appreciated on the bipolar montage and probably a normal sleep variant as the patient is in and out of stage II sleep right around that time. Photic stimulation is performed without significant posterior driving. No other hemisphere asymmetries are seen. Hyperventilation is performed at the end of the recording without change in the background. IMPRESSION Generally unremarkable EEG. Some mild temporal abnormality was noted as above but this is probably a sleep variant. Clinical correlation is needed. MD POPEYE Sebastian/SARMAD /5:17 PM /5:47 PM +9
== END 2017-04-19 17:39 | disposition left against medical advice (07) | DRG 101 ==
LOC: NEPC 08:43 → NEDA 14:14 → N05A 22:31
PROVIDERS: ADMIT Family Medicine; ATTEND Family Medicine
DX: R56.9 Unspecified convulsions (principal); F11.23 Opioid dependence with withdrawal; B19.20 Unspecified viral hepatitis C without hepatic coma; F17.210 Nicotine dependence, cigarettes, uncomplicated; E87.6 Hypokalemia
CPT/HCPCS: 70450; 80053; 80307; 82330; 83036; 83735; 84100; 84146; 84439; 84443; 84702; 85025; 93005; 95819; 96360; J1885; J2060; J3480; J7030

== ENCOUNTER 2018-01-01 23:32 | Emergency (ER) | payer SELFPAY ==
[~2018-01-01] VITALS: Ht 167.6 cm; Wt 65.0 kg
[2018-01-01] MEDS ORDERED: ONDANSETRON HCL 4 MG/2 ML VIAL ONE (23:34)
[2018-01-01 23:40] VITALS: BP 120/67; PULSE 68; RESP 22; TEMP 98.9; O2SAT 100
[2018-01-01 23:45] VITALS: RESP 21; O2SAT 99
[2018-01-01] MEDS ORDERED: ONDANSETRON HCL 4 MG/2 ML VIAL IV ONE (23:45)
[2018-01-01] MEDS ORDERED: SODIUM CHLOR 0.9% 1000 ML INJ 1,000 ML IV ONE (23:45)
--- NOTE | 2018-01-02 00:02 | PD ---
HPI Chief Complaint: Alcohol/Drug Intoxication Time Seen by Provider: 23:39 Travel History International Travel<30 days: No Contact w/Intl Traveler<30days: No Traveled to known affect area: No History of Present Illness HPI The patient is a 22 year old female who presents to the [facility] emergency department with a history of crushing and injecting at 10:30 PM a Subutex tablet for the first time. She reports that she mixed it with heroin. Shortly after doing this she reports having generalized body pain and nausea with vomiting. The patient reports having one episode of vomiting on arrival to the emergency department. She is drowsy on examination and repeatedly falls asleep during the evaluation. She is unsure when her last menstrual cycle was. She denies having any other acute complaints. PFSH Past Medical History Narrative Medical The patient's past medical history is significant for a history of hepatitis C, history of IV drug use, history of tobacco abuse. ADHD: No Blood Disorders: Yes (hepatitis C) Anxiety: Yes Depression: No Cancer: No Cardiovascular Problems: No Diabetes: No Diminished Hearing: No Endocrine: No Genitourinary: No Hepatitis: Yes (HEPATITIS C) Hiatal Hernia: No Immune Disorder: No Musculoskeletal: No Neurologic: No Psychiatric: Yes Reproductive: No Respiratory: No Immunizations Current: No Migraines: No Seizures: Yes (Recent) Thyroid Disease: No Ulcer: No ?: Not : 0 Past Surgical History Narrative Surgical The patient's past surgical history is reportedly none. Abdominal Surgery: No AICD: No Cardiac Surgery: No Ear Surgery: No Endocrine Surgery: No Eye Surgery: No Genitourinary Surgery: No Gynecologic Surgery: No Joint Replacement: No Oral Surgery: No Pacemaker: No Thoracic Surgery: No Other Surgery: No Social History Alcohol Use: No Tobacco Use: Yes (1 CIGARETTE) Substance Use: Yes (Heroin and Subutex at 10:30 PM today) Allergies-Medications (Allergen,Severity, Reaction): Coded Allergies: No Known Allergies (Verified , 04/18/17) Reported Meds & Prescriptions Reported Meds & Active Scripts Active Reported Methadone Hcl (Methadone HCl) 40 Mg Tab 140 Mg PO DAILY Review of Systems Except as stated in HPI: all other systems reviewed are Neg General / Constitutional: No: Fever Eyes: No: Visual changes HENT: No: Headaches Cardiovascular: No: Chest Pain or Discomfort Respiratory: No: Shortness of Breath Gastrointestinal: Positive: Nausea, Vomiting, No: Abdominal Pain Genitourinary: No: Dysuria Musculoskeletal: Positive: Myalgias, Pain Skin: No Rash Neurologic: No: Weakness Psychiatric: No: Depression Endocrine: No: Polydipsia Hematologic/Lymphatic: No: Easy Bruising Physical Exam Narrative General: The patient is a well-developed well-nourished female, uncomfortable appearing on initial arrival related to nausea vomiting.. Head and Neck exam: Head is normocephalic atraumatic. Eyes: EOMI, pupils are equal round and reactive to light. Nose: Midline septum with pink mucous membranes Mouth: Dentition unremarkable. Moist mucus membranes. Posterior oropharynx is not erythematous. No tonsillar hypertrophy. Uvula midline. Airway patent. Neck: No palpable lymphadenopathy. No nuchal rigidity. No thyromegaly. Cardiovascular: Regular rate and rhythm without murmurs, gallops, or rubs. No pulse deficit to the extremities on simultaneous auscultation and palpation of her radial artery. Lungs: Clear to auscultation bilaterally. No wheezes, rhonchi, or rales. Abdomen: Soft, without tenderness to palpation in all 4 quadrants of the abdomen. No guarding, rebound, or rigidity. Normal bowel sounds are audible. No tenderness on palpation of McBurney's point.. Extremities: No clubbing, cyanosis, or edema. 2+ pulses in all 4 extremities. No calf tenderness on palpation peer Back: No spinous process tenderness to palpation. No costovertebral angle tenderness to palpation. Neurologic Exam: Grossly nonfocal. Skin Exam: No rash noted. Intact skin that is warm and dry. Data Data Last Documented VS Vital Signs Date Time Temp Pulse Resp B/P (MAP) Pulse Ox O2 Delivery O2 Flow Rate FiO2 01/01/18 23:45 21 99 Room Air 01/01/18 23:40 98.9 68 120/67 (84) Orders Orders Ondansetron Inj (Zofran Inj) (01/01/18 23:34) Complete Blood Count With Diff (01/01/18 23:40) Comprehensive Metabolic Panel (01/01/18 23:40) Prothrombin Time / Inr (Pt) (01/01/18 23:40) Act Partial Throm Time (Ptt) (01/01/18 23:40) Lipase (01/01/18 23:40) Urinalysis - C+S If Indicated (01/01/18 23:40) Magnesium (Mg) (01/01/18 23:40) Chest, Single Ap (01/01/18 23:40) Iv Access Insert/Monitor (01/01/18 23:40) Ecg Monitoring (01/01/18 23:40) Oximetry (01/01/18 23:40) Ed Urine Pregnancytest Poc (01/01/18 23:40) Drug Screen, Random Urine (01/01/18 23:40) Alcohol (Ethanol) (01/01/18 23:40) Salicylates (Aspirin) (01/01/18 23:40) Tylenol (Acetaminophen) (01/01/18 23:40) Sodium Chlor 0.9% 1000 Ml Inj (Ns 1000 M (01/01/18 23:45) Ondansetron Inj (Zofran Inj) (01/01/18 23:45) Urine Culture (01/02/18 02:00) Labs Laboratory Tests Test 01/01/18 23:45 01/02/18 02:00 White Blood Count 7.4 TH/MM3 Red Blood Count 4.75 MIL/MM3 Hemoglobin 13.9 GM/DL Hematocrit 40.9 % Mean Corpuscular Volume 86.3 FL Mean Corpuscular Hemoglobin 29.2 PG Mean Corpuscular Hemoglobin Concent 33.9 % Red Cell Distribution Width 13.0 % Platelet Count 237 TH/MM3 Mean Platelet Volume 8.3 FL Neutrophils (%) (Auto) 55.6 % Lymphocytes (%) (Auto) 33.8 % Monocytes (%) (Auto) 6.5 % Eosinophils (%) (Auto) 3.5 % Basophils (%) (Auto) 0.6 % Neutrophils # (Auto) 4.1 TH/MM3 Lymphocytes # (Auto) 2.5 TH/MM3 Monocytes # (Auto) 0.5 TH/MM3 Eosinophils # (Auto) 0.3 TH/MM3 Basophils # (Auto) 0.0 TH/MM3 CBC Comment DIFF FINAL Differential Comment Prothrombin Time 10.7 SEC Prothromb Time International Ratio 1.1 RATIO Activated Partial Thromboplast Time 26.2 SEC Blood Urea Nitrogen 13 MG/DL Creatinine 0.72 MG/DL Random Glucose 127 MG/DL Total Protein 8.6 GM/DL Albumin 4.3 GM/DL Calcium Level 10.1 MG/DL Magnesium Level 2.1 MG/DL Alkaline Phosphatase 83 U/L Aspartate Amino Transf (AST/SGOT) 32 U/L Alanine Aminotransferase (ALT/SGPT) 44 U/L Total Bilirubin 0.2 MG/DL Sodium Level 143 MEQ/L Potassium Level 3.6 MEQ/L Chloride Level 107 MEQ/L Carbon Dioxide Level 26.9 MEQ/L Anion Gap 9 MEQ/L Estimat Glomerular Filtration Rate 100 ML/MIN Lipase 219 U/L Salicylates Level LESS THAN 1.7 MG/DL Acetaminophen Level LESS THAN 2.0 MCG/ML Ethyl Alcohol Level LESS THAN 3 MG/DL Urine Color LIGHT-YELLOW Urine Turbidity CLOUDY Urine pH 7.5 Urine Specific [place] 1.012 Urine Protein NEG mg/dL Urine Glucose (UA) NEG mg/dL Urine Ketones NEG mg/dL Urine Occult Blood NEG Urine Nitrite NEG Urine Bilirubin NEG Urine Urobilinogen LESS THAN 2.0 MG/DL Urine Leukocyte Esterase LARGE Urine RBC 3 /hpf Urine WBC 17 /hpf Urine Squamous Epithelial Cells 20 /hpf Urine Transitional Epithelial Cells <1 /hpf Urine Bacteria OCC /hpf Urine Mucus FEW /lpf Urine Yeast (Budding) MANY Microscopic Urinalysis Comment CULTURE INDICATED Urine Opiates Screen POS Urine Barbiturates Screen NEG Urine Amphetamines Screen NEG Urine Benzodiazepines Screen NEG Urine Cocaine Screen NEG Urine Cannabinoids Screen NEG MDM Medical Decision Making Medical Screen Exam Complete: Yes Emergency Medical Condition: Yes Medical Record Reviewed: Yes Differential Diagnosis Medication side effect, versus gastroenteritis, versus viral syndrome Narrative Course During the course of the patient's emergency department visit, the patient's history, examination, and differential diagnosis were reviewed with the patient. The patient was placed on a online communications specialist with oximetry and frequent blood pressure monitoring. The patient had IV access obtained and blood work sent for analysis. A bedside test was negative. The patient was initially provided normal saline 1 L IV fluid bolus, Zofran 4 mg IV The patient's laboratory studies were reviewed and remarkable for CBC & BMP Diagram 01/01/18 23:45 Total Protein 8.6 H, Albumin 4.3, Calcium Level 10.1, Magnesium Level 2.1, Alkaline Phosphatase 83, Aspartate Amino Transf (AST/SGOT) 32, Alanine Aminotransferase (ALT/SGPT) 44, Total Bilirubin 0.2, lipase is within normal limits, PT PTT unremarkable, urine drug screen is positive for opiates, salicylate less than 1.7, acetaminophen less than 2, alcohol level less than 3. Urinalysis shows large leukocyte esterase 3 RBCs WBC 17, 20 squamous epithelial cells, occasional bacteria, few mucus, many yeast, culture indicated. The patient will be given a prescription for Terazol cream for yeast. Radiology studies were reviewed and remarkable for Last Impressions Chest X-Ray 01/01/18 2340 Signed Impressions: Service Date/Time: Monday, January 01, 2018 23:52 - CONCLUSION: Hypoinflation with no acute cardiac pulmonary process. Gomez Mitchell MD Diagnosis Primary Impression: Drug abuse Additional Impression: Yeast infection Referrals: Primary Care Physician 1 week [facility] needed Patient Instructions: General Instructions, Polysubstance Abuse (ED), Vulvovaginal Candidiasis (ED) Med/Other Pt SpecificInfo: Prescription(s) given Scripts Terconazole Vaginal Cream (Terazol 7 Vaginal Cream) 0.4 % Cream 1 APPL VAGINAL HS for Fungal Infection, #45 GM 0 Refills 1 applicatorful intravaginally x 7 nights Prov: Barbara Sherman MD 01/02/18 Disposition: 01 DISCHARGE HOME Condition: Stable Barbara Sherman MD January 02, 2018 00:02
--- NOTE | 2018-01-02 00:03 | RADRPT ---
EXAM DATE/TIME: 01/01/2018 23:52 [place] COMPARISON: No previous studies available for comparison. INDICATIONS : Vomiting. MEDICAL HISTORY : None. SURGICAL HISTORY : None. ENCOUNTER: Initial ACUITY: 1 day PAIN SCORE: 0/10 LOCATION: Bilateral chest FINDINGS: A single view of the chest demonstrates the lungs to be symmetrically hypoinflated without evidence o f mass, infiltrate or effusion. The cardiomediastinal contours are unremarkable. Osseous structures are intact. CONCLUSION: Hypoinflation with no acute cardiac pulmonary process. Gomez Mitchell MD on January 02, 2018 at 0:01 Board Certified Radiologist. This report was verified electronically.
[2018-01-02 00:08] LABS: AUTOMATED NEUTROPHIL # 4.1 TH/MM3 (1.8-7.7); BASOPHIL % 0.6 % (0.0-2.0); EOSINOPHIL # 0.3 TH/MM3 (0-0.4); EOSINOPHIL % 3.5 % (0.0-4.0); HEMATOCRIT 40.9 % (35.0-46.0); HEMOGLOBIN 13.9 GM/DL (11.6-15.3); LYMPH % 33.8 % (9.0-44.0); LYMPHOCYTE # 2.5 TH/MM3 (1.0-4.8); MEAN CELL VOLUME 86.3 FL (80.0-100.0); MEAN CORPUSCULAR HEMOGLOBIN 29.2 PG (27.0-34.0); MEAN CORPUSCULAR HGB CONC 33.9 % (32.0-36.0); MEAN PLATELET VOLUME 8.3 FL (7.0-11.0); MONO % 6.5 % (0.0-8.0); MONOCYTE # 0.5 TH/MM3 (0-0.9); NEUT % 55.6 % (16.0-70.0); PLATELET COUNT 237 TH/MM3 (150-450); RED BLOOD COUNT 4.75 MIL/MM3 (4.00-5.30); WHITE BLOOD COUNT 7.4 TH/MM3 (4.0-11.0)
[2018-01-02 00:26] LABS: INTERNATIONAL NORMALIZED RATIO 1.1 RATIO; PROTHROMBIN TIME - PATIENT 10.7 SEC (9.8-11.6)
[2018-01-02 00:49] LABS: ALBUMIN 4.3 GM/DL (3.4-5.0); ALKALINE PHOSPHATASE 83 U/L (45-117); ALT (GPT) 44 U/L (10-53); AST (GOT) 32 U/L (15-37); BICARBONATE 26.9 MEQ/L (21.0-32.0); BLOOD UREA NITROGEN 13 MG/DL (7-18); CALCIUM 10.1 MG/DL (8.5-10.1); CHLORIDE 107 MEQ/L (98-107); CREATININE 0.72 MG/DL (0.50-1.00); GLOMERULAR FILTRATION RATE 100 ML/MIN (>89); GLUCOSE,RANDOM 127 MG/DL (74-106); MAGNESIUM 2.1 MG/DL (1.5-2.5); SODIUM (NA) 143 MEQ/L (136-145); TOTAL BILIRUBIN ADULT 0.2 MG/DL (0.2-1.0); TOTAL PROTEIN 8.6 GM/DL (6.4-8.2)
[2018-01-02 00:51] LABS: ACETAMINOPHEN LESS THAN 2.0 MCG/ML (10.0-30.0)
[2018-01-02 02:21] LABS: BACTERIA, URINE OCC /hpf; BILIRUBIN, URINE NEG (NEG); BLOOD, URINE NEG (NEG); GLUCOSE,URINE NEG (NEG); KETONE, URINE NEG (NEG); MUCUS URINE FEW /lpf (OCC); NITRITE,URINE NEG (NEG); PH, URINE 7.5 (5.0-8.5); SQUAMOUS EPITHELIAL CELL URINE 20 /hpf (0-5); TRANSITIONAL EPI CELLS, URINE <1 /hpf; URINE COLOR LIGHT-YELLOW (YELLW/STRAW); URINE LEUKOCYTE ESTERASE LARGE (NEG)
[2018-01-02] MEDS ORDERED: TERC.4%V VAGINAL (02:55)
[2018-01-02 06:00] VITALS: BP 114/62; PULSE 79; RESP 16; O2SAT 98
== END 2018-01-02 06:49 | disposition home or self-care (01) ==
LOC: NEPE 23:32
DX: F11.10 Opioid abuse, uncomplicated (principal); B37.9 Candidiasis, unspecified; B19.20 Unspecified viral hepatitis C without hepatic coma; R82.71 Bacteriuria; Z79.899 Other long term (current) drug therapy
CPT/HCPCS: 71045; 80053; 80307; 81001; 83690; 83735; 84703; 85025; 85610; 85730; 87086; 96361; 96374; 99284; J2405; J7030